=== PATIENT | male | born 2000 | race Caucasian/White ===

== ENCOUNTER 2021-10-01 09:22 | Emergency (ER) | payer MEDICAID ==
[~2021-10-01] VITALS: Ht 180.3 cm; Wt 47.7 kg
[2021-10-01 10:00] VITALS: BP 110/60
== END 2021-10-01 10:02 | disposition home or self-care (01) ==
LOC: EMS 09:25
DX: R42 Dizziness and giddiness (principal); T40.715A Adverse effect of cannabis, initial encounter; F12.90 Cannabis use, unspecified, uncomplicated; J45.909 Unspecified asthma, uncomplicated; Z91.013 Allergy to seafood; Y92.89 Other specified places as the place of occurrence of the external cause
CPT/HCPCS: 99283; Z7502

== ENCOUNTER 2022-07-07 20:43 | Emergency (ER) | payer SELFPAY ==
[~2022-07-07] VITALS: Ht 180.3 cm; Wt 84.1 kg
[2022-07-07 20:52] VITALS: BP 122/68
== END 2022-07-07 21:35 | disposition left against medical advice (07) ==
LOC: EMS 20:44
DX: R10.9 Unspecified abdominal pain (principal); Z53.21 Procedure and treatment not carried out due to patient leaving prior to being seen by health care provider
CPT/HCPCS: 99281; Z7502